=== PATIENT | female | born 1975 | race Hispanic/Latino ===

== ENCOUNTER 2022-06-25 14:31 | Emergency (ER) | payer BC, OTHER ==
--- OUTSIDE RECORDS SUMMARY | 2022-06-25 14:34 | XMS REPORT | Continuity of Care Document ---
:1975 Author Organization [facility] t Address [address] Humphre[place]. [address] [place] [id number] Care Team Providers Name Role Phone Cristian LEDESMA, Art Primary Care Physician Sonia Coronado MD Attending Clinician Jnoel Greco Attending Clinician Caio Cisneros CABLE MAINTAINER, Kourtney Mathew Attending Clinician Jeanmarie West Attending Clinician SONIA CORONADO Admitting Clinician Unavailable Payers Payer Name Policy Type Policy Number Effective Date Expiration Date S ource Problems Condition Condition Condition Status Onset Resolution Last Treating Co mments Source Name Details Category Date Date Treatment Clinician Date Radiculopa Radiculopa Disease Active M ethodi thy, thy, 8-24 st cervical cervical 00:00: Hospit a region region 00 l Allergies, Adverse Reactions, Alerts Allergy Allergy Status Severity Reaction(s) Onset Inactive Treating Comm ents Source Name Type Date Date Clinician Tramadol Propensi Active Rash Method i ty to 8-10 st adverse 00:00: Hospita reaction 00 l s to drug Family History Family Member Diagnosis Comments Start Date Stop Date Source Natural father [facility] Social History Social Habit Start Date Stop Date Quantity Comments Source Alcohol intake 2022-06-05 2022-06-05 [facility]drinker [facility] 00:00:00 (finding) Hospital Tobacco use and 2022-05-20 2022-05-20 Smokeless tobacco [facility] exposure 00:00:00 00:00:00 non-user Hospital Sex Assigned At [birth year] F [facility] Smoking Status Start Date Stop Date Source Never smoked tobacco [facility] Medications Ordered Filled Start Stop Current Ordering Indication Dosage Frequency Signature Comments Components Source Medication Medication Date Date Medication? Clinician (SIG) Name Name methocarbam Yes 750mg Q.25D Take 1 Me thodi oL - tablet st (Robaxin-75 00:00: (750 mg Hos seymour 0) 750 MG 00 total) by l tablet mouth 4 (four) times a day as needed for muscle spasms. methylPREDN 2021- Yes follow Met hodi ISolone 06-23 10-[address] (Medrol, 00:00: 04:59 directions Ho jesiac Nicholas,) 4 mg 00 :00 l tablet tamsulosin 2021- Yes .4mg QD Take 1 Meth boogie (FLOMAX) 06-[address] 0.4 mg 00:00: 04:59 (0.4 mg Hospita capsule 00 :00 total) by l mouth daily for 30 days. meloxicam 2021- No 15mg QD Take 15 mg M ethodi (MOBIC) 15 06-[address] mg tablet 19:18: 00:00 daily. Hospi ta 40 :00 l indomethaci 2022- Yes 25mg Q.[id number] Take 1 Methodi n (INDOCIN) 06-[id number] 25 MG 00:00: 05:59 3D (25 mg Hospita capsule 00 :00 total) by l mouth 3 (three) times a day with meals for 180 days. methocarbam 2021- No 750mg Q.25D Take 1 M ethodi oL 06-[address] (ROBAXIN) 00:00: 04:59 (750 mg Hosp quintin 750 MG 00 :00 total) by l tablet mouth 4 (four) times a day as needed for muscle spasms for up to 10 days. omeprazole Yes 40mg Take 40 mg M ethodi (PriLOSEC) 6-[address] 40 MG 00:00: as needed. Hospit a capsule 00 l Immunizations Ordered Immunization Filled Immunization Date Status Commen ts Source Name Name NO COY-Babs 2021-01-16 Completed [facility] AD26 VACCINATION 00:00:00 Hospital Vital Signs Vital Name Observation Time Observation Value Comments Source Systolic blood 2022-06-04 21:42:30 113 mm[Hg] [facility] pressure Diastolic blood 2022-06-04 21:42:30 59 mm[Hg] [facility] pressure Heart rate 2022-06-04 21:42:30 75 /min [facility] Body temperature 2022-06-04 21:42:30 36.67 [facility] Respiratory rate 2022-06-04 21:42:30 16 /min [facility] Oxygen saturation in 2022-06-04 21:42:30 92 /min [facility] Arterial blood by Pulse oximetry Body height 2022-06-03 14:49:00 162.6 cm [facility] Body weight 2022-06-03 14:49:00 76.204 kg [facility] BMI 2022-06-03 14:49:00 28.84 kg/m2 [facility] Procedures Procedure Date / Time Performing Clinician Source Performed US DUPLEX VENOUS UPPER 2022-06-04 15:10:00 Petey Rangel [facility] EXTREMITY RIGHT SURGICAL PATHOLOGY 2022-06-03 20:03:00 [facility] REQUEST OR FL > 1 HOUR 2022-06-03 17:45:00 [facility] Sonia Ruby dieudonne MA AN ELECTIVE 2022-06-03 16:30:00 Gaston Moyer [facility] ENDOTRACHEAL AIRWAY DISCECTOMY, CERVICAL, 2022-06-03 16:17:00 [facility] ANTERIOR ABO AND RH CONFIRMATION 2022-06-03 15:15:00 [facility] BY PROTOCOL TYPE AND SCREEN 2022-06-03 15:09:00 Sonia Coronado COMPREHENSIVE METABOLIC 2022-05-20 21:00:00 Kourtney Sky [facility] PANEL HC COMPLETE BLD COUNT 2022-05-20 21:00:00 [facility] W/AUTO DIFF HEMOGLOBIN A1C 2022-05-20 21:00:00 [facility] ESTIMATED GFR 2022-05-20 21:00:00 [facility] MRI SPINE EXTERNAL STUDY 2022-04-27 15:11:00 Sonia Coronado Met [facility] XR SPINE EXTERNAL STUDY 2022-04-22 14:50:00 Sonia Coronado [facility] Plan of Care Planned Activity Planned Date Details Comments Source Future Scheduled 2022-06-25 HEPATITIS B VACCINES Met [facility] Test 10:00:14 (1 of 3 - 3-dose series) [code = HEPATITIS B VACCINES (1 of 3 - 3-dose series)] Future Scheduled 2022-06-25 Hepatitis C screening [facility] Test 10:00:14 (procedure) [code = 998929080] Future Scheduled 2022-06-25 Screening for [facility] Test 10:00:14 malignant neoplasm of cervix (procedure) [code = 602556735] Future Scheduled 2022-06-25 BREAST CANCER [facility] Test 10:00:14 SCREENING [code = BREAST CANCER SCREENING] Future Scheduled 2022-06-25 COVID-19 VACCINE (2 - [facility] Test 10:00:14 Booster for No series) [code = COVID-19 VACCINE (2 - Booster for No series)] Future Scheduled 2022-06-25 COLONOSCOPY SCREENING [facility] Test 10:00:14 [code = COLONOSCOPY SCREENING] Future Scheduled 2022-06-25 INFLUENZA VACCINE [facility] Test 10:00:14 [code = INFLUENZA VACCINE] Encounters Start End Encounter Admission Attending Care Care Encounter Source Date/Time Date/Time Type Type Clinicians Facility Department ID 2022-06-23 2022-06-23 Office Yoni Coronado2.840.1 [id number] Methodsundar 13:15:00 13:15:[address]1.[address] 3.430.2.7 Hospit a .3.997557 l .8 2022-06-23 2022-06-23 Orders Yoni Coronado2.840.1 [id number] Methodi 00:00:00 00:00:[address] Sonia [address]1.[address] 3.430.2.7 Hospit a .3.990494 l .8 2022-06-23 2022-06-23 Travel 1.2.840.1 1.2.525.534 [id number] Methodi 00:00:00 00:00:[address] 3.430.2.7 0.2.7.3.698 spita .3.406504 084.8 l .8 2022-06-23 2022-06-23 Outpatient [facility] [id number] Ora 00:00:00 00:00:[address] SONIA [address] 2022-06-03 2022-06-04 Formerly [facility] 1.2.840.1 [id number] Methodi 08:40:00 19:18:00 Encounter Sonia 40504.1.[address] 3.430.2.7 Hospit a .3.091787 l .8 2022-06-03 2022-06-04 Outpatient [facility] [id number] Ora 00:00:00 00:00:00 SONIA [address] 2022-06-03 2022-06-03 Surgery [facility] 1.2.840.1 [id number] Methodi 11:00:00 13:50:[address] 3.430.2.7 Hospit a .3.527899 l .8 2022-06-03 2022-06-03 Anesthesia Jonel Greco 1.2.840.1 [id number] Methodi 11:17:00 13:07:00 Event Kourtney Sky 69498.1.[address] 3.430.2.7 Hospit a .3.118494 l .8 2022-06-03 2022-06-03 Travel 1.2.840.1 1.2.586.044 [id number] Methodi 00:00:00 00:00:[address] 3.430.2.7 0.2.7.3.698 Ho spita .3.340582 084.8 l .8 2022-05-20 2022-05-20 Pre-Admiss Coronado, 1.2.840.1 [id number] Methodi 15:10:00 16:10:00 ion Sonia 93518.1.[address] Testing 3.430.2.7 Hospit a .3.614045 l .8 2022-05-20 2022-05-20 Travel 1.2.840.1 1.2.141.059 1433 [id number] Methodi 00:00:00 00:00:[address] 3.430.2.7 0.2.7.3.698 Ho spita .3.104431 084.8 l .8 2022-05-20 2022-05-20 Outpatient [facility] [id number] Ora 00:00:00 00:00:00 SONIA [address] 2022-05-12 2022-05-12 [facility], 1.2.840.1 [id number] Methodi 09:18:20 23:59:00 Encounter Sonia [address]26.1.[address] 3.430.2.7 Hospit a .3.210305 l .8 2022-05-12 2022-05-12 [facility], 1.2.840.1 [id number] Methodi 09:30:00 10:12:55 Visit Sonia 39522.1.[address] 3.430.2.7 Hospit a .3.965606 l .8 2022-05-12 2022-05-12 [facility], 1.2.840.1 [id number] Methodi 09:17:43 09:17:43 Encounter Sonia 23621.1.[address] 3.430.2.7 Hospit a .3.496362 l .8 2022-05-12 2022-05-12 Outpatient [facility] [id number] Ora 00:00:00 00:00:00 SONIA 161 Method i 2022-05-12 2022-05-12 Outpatient [facility], [facility] [id number] Ora 00:00:00 00:00:00 SONIA 638 Method i 2022-05-12 2022-05-12 Outpatient [facility] [id number] Ora 00:00:00 00:00:00 SONIA 729 Method i 2022-05-12 2022-05-12 Travel 1.2.840.1 1.2.305.733 2612 [id number] Methodi 00:00:00 00:00:00 89801.1.1 350.1.13.43 703 3.430.2.7 0.2.7.3.698 spita .3.412859 084.8 l .8 2022-05-04 2022-05-06 Outside nullFlavo MNA [id number] Memoria 14:58:28 04:59:59 Medical r Neurology 00 l Records Luanne Cuero 2022-05-04 2022-05-06 Outside nullFlavo MNA [id number] Memoria 14:58:28 04:59:59 Medical r Neurology 00 l Records Luanne Cuero 2022-05-04 2022-05-05 Outpatient [facility] [id number] 09:58:28 23:59:59 00 2022-04-29 2022-04-30 Outpatient nullFlavo MNA [id number] Memoria 21:00:00 04:59:59 r Neurology 02 l Luanne Cuero 2022-04-29 2022-04-30 Outpatient nullFlavo MNA [id number] Memoria 21:00:00 04:59:59 r Neurology 01 l Luanne Cuero 2022-04-29 2022-04-30 Outpatient nullFlavo MNA [id number] Memoria 21:00:00 04:59:59 r Neurology 01 l Luanne Cuero 2022-04-29 2022-04-30 Outpatient nullFlavo MNA [id number] Memoria 21:00:00 04:59:59 r Neurology 02 l Knott Cuero 2022-04-29 2022-04-29 Outpatient [facility] SHAYSCHER [id number] 16:00:00 23:59:59 Jeanmarie 01 Amor 2022-04-29 2022-04-29 Outpatient FERNANDA WestER JEFFERYSCHER [id number] 16:00:00 23:59:59 Jeanmarie 02 Amor 2022-04-29 2022-04-29 Outpatient MHIE LIZETTIE [id number] Memoria 16:00:00 16:00:00 01 berry Leo 2022-04-29 2022-04-29 Outpatient MHIE MHIE [id number] Memoria 16:00:00 16:00:00 02 berry Ahmet 2019-06-09 2019-06-10 Outpatient nullFlavo MNA [id number] Memoria 13:15:00 04:59:59 r Neurology 00 l Luanne Leo 2019-06-09 2019-06-10 Outpatient nullFlavo MNA [id number] Memoria 13:15:00 04:59:59 r Neurology 00 l Knott Ahemt 2019-06-09 2019-06-09 Outpatient LARA West SHAYSCHER [id number] 08:15:00 23:59:59 Jeanmarie 00 Amor 2019-06-09 2019-06-09 Outpatient MHIE MHIE [id number] Memoria 08:15:00 08:15:00 00 berry Ahmet Results Test Description Test Time Test Comments Results Result Comments Source Surgical pathology request 2022-06-08 21:30:48 Test Item Value Reference Range Interpretation Comme nts Case number (test code = [id number]) [id number] Surgical pathology report (test code = See link below for PDF Lab R eport 2440) Result status (test code = [id number]) This is Final Report for [id number] 3123-4 [facility]
--- NOTE | 2022-06-25 14:57 | RAD REPORT ---
EXAM DESCRIPTION: CT - Ct Stroke Brain Wo Cont - 06/25/2022 2:50 pm CLINICAL HISTORY: LT SIDE FACIAL DROOP Headache, drowsiness, CVA symptomology COMPARISON: No comparisons TECHNIQUE: All CT scans are performed using dose optimization technique as appropriate and may inclu de automated exposure control or mA/KV adjustment according to patient size. FINDINGS: No intracranial hemorrhage, hydrocephalus or extra-axial fluid collection.No areas of brai n edema or evidence of midline shift. The paranasal sinuses and mastoids are clear. The calvarium is intact. IMPRESSION: No acute intracranial abnormality. If there is continued clinical concern for CVA, MR imaging of the brain would be recommended. The findings were discussed with Dr Zamarripa in the emergency room on 06/25/2022 at 2:49 p.m. by giacomo krishna.
--- NOTE | 2022-06-25 15:30 | ER ---
Nurse's Notes [facility] Name: Javy Brenner Age: 46 yrs Sex: Female : 1975 Arrival Date: 06/25/2022 Time: 14:33 Bed 5 Private MD: Art Foster Diagnosis: Fusion of spine, cervical region Presentation: 06/25 14:39 Onset of symptoms was June 25, 2022 at 11:30. tw2 14:39 Acuity: ANTONIO 2 tw2 14:39 Chief complaint: Patient states: i went to my therapy for cervical ruptured disc tw2 surgery that i had 06/03 and i started having muscle spasms yesterday. but the therapist told me today that she noticed LEFT eye drooping around 1130. she told me she was going to call my surgery. then they just called me back and told me to come here and dr. florence office told me to come here. i did have Bellaire palsey 04/09. Coronavirus screen: At this time, the client does not indicate any symptoms associated with coronavirus-19. Ebola Screen: Patient denies travel to an Ebola-affected area in the 21 days before illness onset. No acute neurological deficit is noted. Pre-hospital glucose is not applicable to this patient. Initial Sepsis Screen: Does the patient meet any 2 criteria? No. Patient's initial sepsis screen is negative. Does the patient have a suspected source of infection? No. Patient's initial sepsis screen is negative. Risk Assessment: Do you want to hurt yourself or someone else? Patient reports no desire to harm self or others. 14:39 Method Of Arrival: Wheelchair tw2 Triage Assessment: 14:43 The onset of the patients symptoms was June 25, 2022 at 11:30. General: Appears in tw2 no apparent distress. well groomed, Behavior is calm, cooperative, appropriate for age. Pain: Denies pain. Neuro: Level of Consciousness is awake, alert, obeys commands, Oriented to person, place, time, situation, Construction Estimator are equal bilaterally Moves all extremities. Facial droop on left, Reports dizziness, facial droop on left that my daughter noticed.. POLICY CANCELLATION CLERK: 14:50 LMP N/A - Hysterectomy ph Stroke Activation: Symtpom onset >3 hours and < 6 hours Physician: Stroke Attending; Name: ; Notified At: ; Arrived At: Physician: Chief Stroke Resident; Name: ; Notified At: ; Arrived At: Physician: Stroke Resident; Name: ; Notified At: ; Arrived At: Physician: ED Attending; Name: ; Notified At: ; Arrived At: Physician: ED Resident; Name: ; Notified At: ; Arrived At: Historical: - Allergies: 14:38 tramadol; tw2 - Home Meds: 14:39 methocarbamol 750 mg Oral tab 1 tab every 4 hours [Active]; indomethacin 25 mg Oral cap tw2 1 cap 3 times per day [Active]; - PMHx: 14:46 Bellaire palsey; tw2 - PSHx: 14:38 cervical ruptured disck sx 06/03; tw2 - Immunization history:: Client reports receiving the Gus \\T\\ Gus single-dose vaccine. . - Social history:: Smoking status: Patient denies any tobacco usage or history of. - Family history:: not pertinent. Screenin:26 Abuse screen: Denies threats or abuse. Denies injuries from another. Nutritional ph screening: No deficits noted. Tuberculosis screening: No symptoms or risk factors identified. Fall Risk None identified. Assessment: 14:55 VAN Scoring: Arm Drift: Patients demonstrates NO arm weakness. Patient is VAN Negative. ph TNKase (Tenecteplase) Screening: Contraindications: Rapidly improving condition or minor deficit: Yes. Reassessment: No facial droop or deficits noted. General: Appears in no apparent distress. comfortable, well groomed, Behavior is calm, cooperative, appropriate for age. Pain: Complains of pain in right posterior aspect of neck and left posterior aspect of neck Pain radiates to left arm Quality of pain is described as "muscle spasm". Neuro: Level of Consciousness is awake, alert, obeys commands, Oriented to person, place, time, situation, Construction Estimator are equal bilaterally Moves all extremities. Full function Gait is steady, Speech is normal, Facial symmetry appears normal, Facial symmetry: tongue is midline, Pupils are PERRLA, Intact. Cardiovascular: Capillary refill < 3 seconds in bilateral fingers Patient's skin is warm and dry. Respiratory: Airway is patent Respiratory effort is even, unlabored. Derm: Skin Skin is pink, warm \\T\\ dry. Musculoskeletal: Circulation, motion, and sensation intact. Range of motion: limited in all extremities. 15:28 Patient has been NPO before screening. The patient is alert, and able to follow commands. The patient does not exhibit slurred or garbled speech. The patient is not exhibiting difficulty speaking. The patient is exhibiting difficulty understanding words. The patient is able to swallow own secretions with no drooling or need for suction. Patient tolerated one teaspoon of water. No drooling, immediate coughing, gurgling, or clearing of the throat was noted. The patient tolerated 90mL of water. No drooling, immediate coughing, gurgling, or clearing of the throat was noted. The patient passed the bedside swallow screening. Oral medications may be given as ordered. Contact Physician for further diet orders. Provider notified of bedside swallow screening results: Werner Zamarripa MD. 15:33 Reassessment: Patient appears in no apparent distress at this time. Patient and/or ph family updated on plan of care and expected duration. Pain level reassessed. Patient is alert, oriented x 3, equal unlabored respirations, skin warm/dry/pink. D/C pending radiology results. Vital Signs: 14:39 BP 125 / 69; Pulse 77; Resp 18; Temp 98.4(TE); Pulse Ox 98% on R/A; tw2 14:46 Weight 70.31 kg (R); tw2 16:28 BP 118 / 79; Pulse 76; Resp 18; Temp 98.0; Pulse Ox 99% on R/A; ph NIH Stroke Scale Scores: 14:55 NIHSS Score: 0 ph ED Course: 14:33 Patient arrived in ED. mr 14:33 Art Foster MD is Private Physician. mr 14:39 Triage completed. tw2 14:43 Arm band placed on. tw2 14:49 Werner Zamarripa MD is Attending Physician. taylor 14:51 Ct Stroke Brain Wo Cont In Process Unspecified. EDMS 14:52 Initial lab(s) drawn, by me, sent to lab. Inserted saline lock: 20 gauge in right ph antecubital area, using aseptic technique. Blood collected. 15:19 Ekaterina Doe, RAMESH is Primary Nurse. ph 15:27 Art Foster MD is Referral Physician. taylor 15:27 aZy Thacker MD is Referral Physician. taylor 15:27 Patient has correct armband on for positive identification. Bed in low position. Call ph light in reach. Side rails up X 1. Pulse ox on. NIBP on. Door closed. Noise minimized. Warm blanket given. 16:04 C Spine Ap/Lat XRAY In Process Unspecified. EDMS 16:26 No provider procedures requiring assistance completed. IV discontinued, intact, ph bleeding controlled, No redness/swelling at site. Pressure dressing applied. Administered Medications: No medications were administered Medication: 15:26 VIS not applicable for this client. ph Point of Care Testing: Blood Glucose: 14:50 Blood Glucose: 110 mg/dL; ph Ranges: Outcome: 15:29 Discharge ordered by MD. taylor 16:26 Discharged to home ambulatory. ph 16:26 Condition: good 16:26 Discharge instructions given to patient, Instructed on discharge instructions, follow up and referral plans. Demonstrated understanding of instructions, follow-up care. 16:29 Patient left the ED. ph NIH Stroke Scale - NIH Stroke Score Date: 06/25/2022 Time: 14:55 Total Score = 0 1a. Level of Consciousness (LOC) - 0(Alert) 1b. Level of Consciousness (LOC) (Month \\T\\ Age) - 0(Both) 1c. LOC Commands (Open \\T\\ Closes Eyes/Mail Distribution Scheme Examiner) - 0(Both) 2. Best Gaze (Lateral Gaze Paresis) - 0(Normal) 3. Visual Field Loss - 0(No visual loss) 4. Facial Palsy - 0(Normal) 5a. Left Arm: Motor (10-second hold) - 0(No drift) 5b. Right Arm: Motor (10-second hold) - 0(No drift) 6a. Left Leg: Motor (5-second hold - always test supine) - 0(No drift) 6b. Right Leg: Motor (5-second hold - always test supine) - 0(No drift) 7. Limb Ataxia (finger/nose \\T\\ heel/peck - test with eyes open) - 0(Absent) 8. Sensory Loss (pinprick arms/legs/face) - 0(Normal) 9. Best Language: Aphasia (description/naming/reading) - 0(No aphasia) 10. Dysarthria (speech clarity - read or repeat words) - 0(Normal) 11. Extinction and Inattention (visual/tactile/auditory/spatial/personal) - 0(No abnormality) Initials: ph Signatures: Dispatcher [employer] EDMS Dallin, Werner, MD MD taylor Burton, Yin mr Lola Thomason, RN RN aa5 Ekaterina Doe RN RN Esmer Banegas RN RN tw2 Corrections: (The following items were deleted from the chart) 15:04 14:45 Lola Thomason, RAMESH is Primary Nurse. aa5 aa5
--- NOTE | 2022-06-25 15:30 | EDPHYS ---
Physician Documentation [facility] Name: Javy Brenner Age: 46 yrs Sex: Female : 1975 Arrival Date: 06/25/2022 Time: 14:33 Bed 5 Private MD: Art Foster ED Physician Werner Zamarripa HPI: 06/25 15:21 This 46 yrs old Female presents to ER via Wheelchair with complaints of Facial taylor Droop. 15:21 The patient presents to the emergency department with NONE. Onset: The symptoms/episode taylor began/occurred just prior to arrival. Context: NO DEFICIT NOTED. Associated signs and symptoms: The patient has no apparent associated signs or symptoms. Severity of symptoms: At their worst the symptoms were mild in the emergency department the symptoms are unchanged. Patient's baseline: Neuro:. Patient's baseline: Neuro: alert and fully oriented, Motor: no deficits, Ambulation: unable to walk, Speech: normal. Current symptoms: Currently, the patient is not experiencing any symptoms. The patient has not experienced similar symptoms in the past. 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 . - Social history:: Smoking status: Patient denies any tobacco usage or history of. - Family history:: not pertinent. ROS: 15:21 Constitutional: Negative for fever, chills, and weight loss, Eyes: Negative for injury, taylor pain, redness, and discharge, ENT: Negative for injury, pain, and discharge, Neck: Negative for injury, pain, and swelling, Cardiovascular: Negative for chest pain, palpitations, and edema, Respiratory: Negative for shortness of breath, cough, wheezing, and pleuritic chest pain, Abdomen/GI: Negative for abdominal pain, nausea, vomiting, diarrhea, and constipation, Back: Negative for injury and pain, : Negative for injury, bleeding, discharge, and swelling, MS/Extremity: Negative for injury and deformity, Skin: Negative for injury, rash, and discoloration, Neuro: Negative for headache, weakness, numbness, tingling, and seizure, Psych: Negative for depression, anxiety, suicide ideation, homicidal ideation, and hallucinations, Allergy/Immunology: Negative for hives, rash, and allergies, Endocrine: Negative for neck swelling, polydipsia, polyuria, polyphagia, and marked weight changes, Hematologic/Lymphatic: Negative for swollen nodes, abnormal bleeding, and unusual bruising. 15:21 Neck: Positive for pain with movement, pain at rest, USUAL POST OP. Exam: 15:21 Constitutional: This is a well developed, well nourished patient who is awake, alert, taylor and in no acute distress. Head/Face: Normocephalic, atraumatic. Eyes: Pupils equal round and reactive to light, extra-ocular motions intact. Lids and lashes normal. Conjunctiva and sclera are non-icteric and not injected. Cornea within normal limits. Periorbital areas with no swelling, redness, or edema. ENT: Nares patent. No nasal discharge, no septal abnormalities noted. Tympanic membranes are normal and external auditory canals are clear. Oropharynx with no redness, swelling, or masses, exudates, or evidence of obstruction, uvula midline. Mucous membranes moist. Neck: Trachea midline, no thyromegaly or masses palpated, and no cervical lymphadenopathy. Supple, full range of motion without nuchal rigidity, or vertebral point tenderness. No Meningismus. Chest/axilla: Normal chest wall appearance and motion. Nontender with no deformity. No lesions are appreciated. Cardiovascular: Regular rate and rhythm with a normal S1 and S2. No gallops, murmurs, or rubs. Normal PMI, no JVD. No pulse deficits. Respiratory: Lungs have equal breath sounds bilaterally, clear to auscultation and percussion. No rales, rhonchi or wheezes noted. No increased work of breathing, no retractions or nasal flaring. Abdomen/GI: Soft, non-tender, with normal bowel sounds. No distension or tympany. No guarding or rebound. No evidence of tenderness throughout. Back: No spinal tenderness. No costovertebral tenderness. Full range of motion. Skin: Warm, dry with normal turgor. Normal color with no rashes, no lesions, and no evidence of cellulitis. MS/ Extremity: Pulses equal, no cyanosis. Neurovascular intact. Full, normal range of motion. Neuro: Awake and alert, GCS 15, oriented to person, place, time, and situation. Cranial nerves II-XII grossly intact. Motor strength 5/5 in all extremities. Sensory grossly intact. Cerebellar exam normal. Normal gait. Psych: Awake, alert, with orientation to person, place and time. Behavior, mood, and affect are within normal limits. 15:21 Neck: External neck: no acute changes, tenderness, NORMAL POST OP, SWALLOWS WITHOUT DIFFICULTY. 15:30 ECG was reviewed by the Attending Physician. [facility] Vital Signs: 14:39 BP 125 / 69; Pulse 77; Resp 18; Temp 98.4(TE); Pulse Ox 98% on R/A; tw2 14:46 Weight 70.31 kg (R); tw2 16:28 BP 118 / 79; Pulse 76; Resp 18; Temp 98.0; Pulse Ox 99% on R/A; ph NIH Stroke Scale Scores: 14:55 NIHSS Score: 0 ph MDM: 14:49 Patient medically screened. [facility] 15:21 Data reviewed: vital signs, nurses notes, EMS record. Data interpreted: Cardiac taylor monitor: not applicable for this patient encounter. rate is 77 beats/min, rhythm is regular, Pulse oximetry: on room air is 98 %. Test interpretation: by ED physician or midlevel provider: ECG, plain radiologic studies. Counseling: I had a detailed discussion with the patient and/or guardian regarding: the historical points, exam findings, and any diagnostic results supporting the discharge/admit diagnosis, radiology results, the need for outpatient follow up, for definitive care, a family practitioner, a neurosurgeon. 06/25 15:05 Order name: Glucose, Ancillary Testing [facility] 06/25 14:50 Order name: Ct Stroke Brain Wo Cont [facility] 06/25 15:06 Order name: EKG; Complete Time: 15:07 [facility] 06/25 15:06 Order name: EKG - Nurse/Tech; Complete Time: 15:28 [facility] 06/25 15:06 Order name: C Spine Ap/Lat XRAY [facility] EC:30 Rate is 78 beats/min. Rhythm is regular. QRS [place] is Normal. TN interval is normal. QRS taylor interval is normal. QT interval is normal. No Q waves. T waves are Normal. Clinical impression: NSR w/ Non-specific ST/T Changes and No evidence of ischemia. Interpreted by me. Reviewed by me. Administered Medications: No medications were administered Point of Care Testing: Blood Glucose: 14:50 Blood Glucose: 110 mg/dL; ph Ranges: Critical Glucose Levels:Adult <50 mg/dl or >400 mg/dl <40 mg/dl or >180 mg/dl Disposition Summary: 06/25/22 15:29 Discharge Ordered Location: Home taylor Problem: new taylor Symptoms: have improved taylor Condition: Stable taylor Diagnosis - Fusion of spine, cervical region taylor Followup: taylor - With: Art Foster MD - When: 2 - 3 days - Reason: Recheck today's complaints, Continuance of care, Re-evaluation by your physician Followup: taylor - With: Zay Thacker MD - When: 2 - 3 days - Reason: Recheck today's complaints, Re-evaluation by your physician Discharge Instructions: - Discharge Summary Sheet taylor - Anterior Cervical Diskectomy and Fusion, Care After taylor - Anterior Cervical Diskectomy and Fusion taylor Forms: - Medication Reconciliation Form taylor - Thank You Letter taylor - Antibiotic Education taylor - Prescription Opioid Use taylor NIH Stroke Scale - NIH Stroke Score Date: 06/25/2022 Time: 14:55 Total Score = 0 1a. Level of Consciousness (LOC) - 0(Alert) 1b. Level of Consciousness (LOC) (Month \T\ Age) - 0(Both) 1c. LOC Commands (Open \T\ Closes Eyes/Hand Alterations Seamstress) - 0(Both) 2. Best Gaze (Lateral Gaze Paresis) - 0(Normal) 3. Visual Field Loss - 0(No visual loss) 4. Facial Palsy - 0(Normal) 5a. Left Arm: Motor (10-second hold) - 0(No drift) 5b. Right Arm: Motor (10-second hold) - 0(No drift) 6a. Left Leg: Motor (5-second hold - always test supine) - 0(No drift) 6b. Right Leg: Motor (5-second hold - always test supine) - 0(No drift) 7. Limb Ataxia (finger/nose \T\ heel/peck - test with eyes open) - 0(Absent) 8. Sensory Loss (pinprick arms/legs/face) - 0(Normal) 9. Best Language: Aphasia (description/naming/reading) - 0(No aphasia) 10. Dysarthria (speech clarity - read or repeat words) - 0(Normal) 11. Extinction and Inattention (visual/tactile/auditory/spatial/personal) - 0(No abnormality) Initials: ph Signatures: Dispatcher [employer] EDWerner Perdomo MD MD cha Wise, Tara RN RN tw2
--- NOTE | 2022-06-25 16:09 | RAD REPORT ---
EXAM DESCRIPTION: RAD - C Spine Ap/Lat - 06/25/2022 4:03 pm CLINICAL HISTORY: PAIN COMPARISON: No comparisons FINDINGS: Cervical bodies are normal in height and alignment.No fracture or acute bony process seen. No disc space narrowing.Postsurgical changes at the disc space of C4-5. No prevertebral soft tissue thickening or other suspicious soft tissue finding. The odontoid is normal and the lateral masses are symmetric. IMPRESSION: Postsurgical changes C4-5. No acute process seen.
--- NOTE | 2022-06-26 12:33 | EKG ---
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
[2022-06-26 19:09] VITALS: BP 118/79; TEMP 98; O2SAT 99
== END 2022-06-25 16:29 | disposition home or self-care (01) ==
LOC: ER 14:31
DX: M43.22 Fusion of spine, cervical region (principal)
CPT/HCPCS: 70450; 72040; 82947; 93005; 99284

== ENCOUNTER → 2023-12-30 | Emergency (ER) | payer OTHER ==
[~2023-12-30] MED LIST: FAMOTIDINE 20 MG/2 ML VIAL IV ONE; KETOROLAC 30 MG/ML INJ ONE; METOCLOPRAMIDE 10 MG/2mL INJ ONE; MORPHINE 4 MG/ML SYR ONE; NA CHLORIDE 0.9% 1,000 ML ONE; ONDANSETRON 4 MG/2 ML VIAL ONE
[2023-12-30 02:50] LABS: Absolute Basophils 0.1 K/uL (0-0.5); Absolute Lymphocytes (CBC) 1.2 K/uL (0.7-4.9); Absolute Monocytes 0.4 K/uL (0.1-1.3); Absolute Neutrophil 16.2 K/uL (1.8-8.0); Basophils % 0.6 % (0-1.3); Eosinophils % 0.1 % (0-4.4); Hematocrit 41.7 % (36.0-45.0); Hemoglobin 14.4 g/dL (12.0-15.0); Lymphocytes % 6.7 % (15.3-44.8); MCH 31.3 pg (27.0-35.0); MCHC 34.6 g/dL (32.0-36.0); MCV 90.6 fL (80-100); MPV 9.1 fL (7.6-11.3); Neutrophils % 90.6 % (41.7-73.7); Platelets 282 thou/uL (152-406); RBC Red Blood Cell Count 4.61 M/uL (3.86-4.86); Red Cell Distribution Width 13.3 % (12.1-15.2)
[2023-12-30 03:08] LABS: Specific Gravity 1.022 (1.005-1.030)
[2023-12-30 03:13] LABS: Albumin 4.1 g/dL (3.4-5.0); Anion Gap 9.6 mEq/L (5.0-15.0); Bilirubin Total 0.8 mg/dL (0.2-1.0); Potassium 3.6 mEq/L (3.5-5.1); Protein, Total 8.1 g/dL (6.4-8.2)
[2023-12-30 03:20] LABS: Specific Gravity 1.022 (1.005-1.030); Sqamous Epithelial <5 /HPF (None Seen); Urine Bacteria None Seen /HPF (<20); Urine Bilirubin NEGATIVE (Negative); Urine Blood Negative (Negative); Urine Clarity Clear (Clear); Urine Color Light-Yellow (Yellow); Urine Culture Reflex Order NOT NEEDED; Urine Glucose NEGATIVE (Negative); Urine Ketones 2+ (Negative); Urine Microscopic Reflex YN ORDER UMIC; Urine Mucus Slight /HPF (None Seen); Urine Nitrite NEGATIVE (Negative); Urine Protein 1+ (Negative); Urine Urobilinogen Normal (Normal); Urine WBC <5 /HPF (<5)
--- NOTE | 2023-12-30 05:06 | EDPHYS ---
Physician Documentation [facility] Name: Javy Brenner Age: 48 yrs Sex: Female : 1975 Arrival Date: 12/30/2023 Time: 01:43 Bed 7 Private MD: Art Foster ED Physician Benjamin Garcia HPI: 12/29 01:57 This 48 yrs old Female presents to ER via Unassigned with complaints of sp4 Abdominal Pain, Back Pain, Vomiting. 04:59 Patient states at 7 PM yesterday she has developed acute onset epigastric right upper sp4 quadrant pain with radiation to the back associated with vomiting. . 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 - Social history:: Smoking status: Patient denies any tobacco usage or history of. - Family history:: not pertinent. ROS: 04:59 Constitutional: Negative for fever, chills, and weight loss, positive abdominal pain, sp4 positive back pain, positive nausea, positive vomiting 04:59 All other systems are negative, Exam: 04:59 Constitutional: This is a well developed, well nourished patient who is awake, alert, sp4 and in no acute distress. Head/Face: Normocephalic, atraumatic. Eyes: Pupils equal round and reactive to light, extra-ocular motions intact. Lids and lashes normal. Conjunctiva and sclera are not injected. Cornea within normal limits. Periorbital areas with no swelling, redness, or edema. ENT: Nares patent. No nasal discharge, no septal abnormalities noted. Tympanic membranes are normal and external auditory canals are clear. Oropharynx with no redness, swelling, or masses, exudates, or evidence of obstruction, uvula midline. Mucous membranes moist. Neck: Trachea midline, no thyromegaly or masses palpated, and no cervical lymphadenopathy. Supple, full range of motion without nuchal rigidity, or vertebral point tenderness. Chest/axilla: Normal chest wall appearance and motion. Nontender with no deformity. No lesions are appreciated. Cardiovascular: Regular rate and rhythm with a normal S1 and S2. No gallops, murmurs, or rubs. Normal PMI, no JVD. No pulse deficits. Respiratory: Lungs have equal breath sounds bilaterally, clear to auscultation and percussion. No rales, rhonchi or wheezes noted. No increased work of breathing, no retractions or nasal flaring. Abdomen/GI: Soft, with normal bowel sounds. No distension or tympany. No guarding or rebound. No evidence of tenderness throughout. Back: No spinal tenderness. No costovertebral tenderness. Skin: Warm, dry with normal turgor. Normal color with no rashes, no lesions, and no evidence of cellulitis. MS/ Extremity: Pulses equal, no cyanosis. Neurovascular intact. Full, normal range of motion. Neuro: Awake and alert, GCS 15, oriented to person, place, time, and situation. Cranial nerves II-XII grossly intact. Motor strength 5/5 in all extremities. Sensory grossly intact. Psych: Awake, alert, with orientation to person, place and time. Behavior, mood, and affect are within normal limits Vital Signs: 01:57 BP 140 / 77; Pulse 71; Resp 16 S; Temp 97.6(O); Pulse Ox 99% on R/A; Weight 83.91 kg; ha1 Height 5 ft. 3 in. ; 03:00 BP 121 / 72; Pulse 69; Resp 17 S; Pulse Ox 98% on R/A; ha1 03:30 BP 128 / 74; Pulse 71; Resp 17 S; Pulse Ox 99% on R/A; ha1 04:37 BP 122 / 61; Pulse 67; Resp 17 S; Pulse Ox 99% on R/A; ha1 05:20 BP 118 / 64; Pulse 67; Resp 17 S; Temp 97.9(O); Pulse Ox 100% on R/A; ha1 01:57 Body Mass Index 32.77 (83.91 kg, 160.02 cm) ha1 [place] Coma Score: 04:59 Eye Response: spontaneous(4). Motor Response: obeys commands(6). Verbal Response: sp4 oriented(5). Total: 15. MDM: 01:57 Patient medically screened. sp4 04:17 ED course: EXAM DESCRIPTION: Abdomen Exam Limited CLINICAL HISTORY: ABD PAIN sp4 COMPARISON: None. TECHNIQUE: Real-time sonographic images of the gallbladder were obtained using a curved multihertz transducer. FINDINGS: Liver: The visualized liver has normal contour and increased echogenicity. Hepatopedal flow in the portal vein. Findings confirmed with color and spectral Doppler imaging. The common bile duct measures 0.3 cm. Gallbladder: Shadowing gallstones within the gallbladder lumen. Gallbladder wall thickness of 0.3 cm. Sonographic Antoine's sign is not provided. IMPRESSION: Cholelithiasis without other sonographic evidence of acute cholecystitis. Hepatic steatosis. . 04:53 ED course: CLINICAL HISTORY: ABD PAIN COMPARISON: None. TECHNIQUE: CTABDOMEN PELVIS sp4 WITH IV CONTRAST on 12/30/2023 2:04 AM CDT This exam was performed according to our departmental dose-optimization program, which includes automated exposure control, adjustment of the mA and/or kV according to patient size and/or use of iterative reconstruction technique. FINDINGS: Lower lungs are clear. Abdomen: Liver is mildly fatty in attenuation. There is no biliary dilatation. Gallbladder is normal in appearance. The pancreas and spleen are normal in appearance. The adrenal glands and kidneys are unremarkable. Abdominal aorta is normal in course and caliber without aneurysm. There is no free air. There is no retroperitoneal adenopathy. Pelvis: There is no bowel obstruction. Urinary bladder is unremarkable. There is no free fluid. Uterus is absent. Appendix is normal. Skeleton: There are no acute osseous findings. No suspicious bony lesions. IMPRESSION: No acute process. Electronically signed by: Reinaldo Aden MD 12/30/2023 04:19 AM. 04:59 Differential diagnosis: Cholelithiasis chronic back pain, Fatigue Fracture sp4 Hydronephrosis Peptic Ulcer. Data reviewed: vital signs, nurses notes, old medical records, lab test result(s), CBC, electrolytes, radiologic studies, CT scan, ultrasound. Consideration of Admission/Observation Escalation of care including admission/observation considered. 05:03 ED course: Patient stable for discharge home with follow-up with Dr. Bradshaw for sp4 cholelithiasis without acute cholecystitis. Advised bland diet, non fat diet as well . 12/29 01:57 Order name: CBC with Diff; Complete Time: 03:36 sp4 12/29 01:57 Order name: CMP; Complete Time: 03:36 sp4 03/21 01:57 Order name: Lipase; Complete Time: 03:36 sp4 12/29 01:57 Order name: Test, Urine; Complete Time: 03:36 sp4 12/29 01:57 Order name: Urinalysis w/ reflexes; Complete Time: 03:36 sp4 12/29 02:04 Order name: CT Abd/Pelvis - IV Contrast Only sp4 12/29 02:04 Order name: US Abdomen Limited sp4 12/29 01:57 Order name: IV Saline Lock; Complete Time: 02:12 sp4 12/29 01:57 Order name: Labs collected and sent; Complete Time: 02:12 sp4 Administered Medications: 02:30 Drug: Famotidine IVP 20 mg IVP once; dilute with 10 mL 0.9% NaCl; give over 2 minutes ha1 Route: IVP; Site: right antecubital; 03:00 Follow up: Response: No adverse reaction; Marked relief of symptoms ha1 02:32 Drug: NS 0.9% IV 1000 ml IV at 1 bolus Per protocol; 1000 mL bolus Route: IV; Rate: 1 ha1 bolus; Site: right antecubital; 05:42 Follow up: Response: No adverse reaction; IV Status: Completed infusion; IV Intake: ha1 1000ml 02:35 Drug: metoCLOPramide IVP 10 mg IVP once; over 1 to 2 minutes Route: IVP; Site: right ha1 antecubital; 03:00 Follow up: Response: No adverse reaction; Marked relief of symptoms ha1 02:37 Drug: Ondansetron IVP 4 mg IVP once; over 2 minutes Route: IVP; Site: right antecubital;ha1 03:00 Follow up: Response: No adverse reaction; Marked relief of symptoms ha1 02:40 Drug: morphine IVP or IV 4 mg IVP once over 4 mins Route: IVP; Infused Over: 4 mins; ha1 Site: right antecubital; 03:00 Follow up: Response: No adverse reaction; Marked relief of symptoms; Pain is decreased; ha1 RASS: Alert and Calm (0) 02:40 Drug: Ketorolac IVP 30 mg IVP once Route: IVP; Site: right antecubital; ha1 03:00 Follow up: Response: No adverse reaction; Marked relief of symptoms ha1 Disposition Summary: 12/30/23 05:05 Discharge Ordered Notes: Location: Home sp4 Problem: new sp4 Symptoms: have improved sp4 Condition: Stable sp4 Diagnosis - Other cholelithiasis without obstruction sp4 - Calculus of gallbladder without cholecystitis sp4 Followup: sp4 - With: Van Bradshaw MD - When: 7 - 10 days - Reason: Recheck today's complaints Discharge Instructions: - Discharge Summary Sheet sp4 - Cholelithiasis, [id number] sp4 Forms: - Patient Portal Instructions sp4 Prescriptions: - Ibuprofen 800 mg Oral Tablet - take 1 tablet ORAL route every 8 hours As needed take with food; 30 tablet; sp4 Refills: 0, Product Selection Permitted - dicyclomine 20 mg Oral tablet - take 2 tablets ORAL route every 8 hours PRN abdominal pain; 30 tablet; Refills: sp4 0, Product Selection Permitted - ondansetron 8 mg Oral Tablet,disintegrating - take 1 tablet ORAL route every 8 hours PRN nausea; 30 tablet; Refills: 0, sp4 Product Selection Permitted Signatures: Dispatcher [employer] Azalia Wilson RN RN ha1 Benjamin Garcia MD MD sp4
--- NOTE | 2023-12-30 05:06 | ER ---
Nurse's Notes [facility] Name: Javy Brenner Age: 48 yrs Sex: Female : 1975 Arrival Date: 12/30/2023 Time: 01:43 Bed 7 Private MD: Art Foster Diagnosis: Other cholelithiasis without obstruction;Calculus of gallbladder without cholecystitis Presentation: 12/29 01:57 Chief complaint: Patient states: I have abdominal pain that radiates to my back, ha1 nausea, vomiting , and diarrhea. 01:57 Coronavirus screen: Vaccine status: Patient reports receiving the 2nd dose of the covid ha1 vaccine. Moderna. Ebola Screen: No symptoms or risks identified at this time. Initial Sepsis Screen: Does the patient meet any 2 criteria? No. Patient's initial sepsis screen is negative. Does the patient have a suspected source of infection? No. Patient's initial sepsis screen is negative. Risk Assessment: Do you want to hurt yourself or someone else? Patient reports no desire to harm self or others. Onset of symptoms was December 30, 2023. :57 Method Of Arrival: Ambulatory ha1 01:57 Acuity: ANTONIO 3 ha1 Triage Assessment: 01:57 General: Appears uncomfortable, Behavior is calm, cooperative. Pain: Complains of pain ha1 in abdomen Pain radiates to back. Neuro: Level of Consciousness is awake, alert, obeys commands, Oriented to person, place, time, situation. Cardiovascular: Patient's skin is warm and dry. Respiratory: Airway is patent Respiratory effort is even, unlabored, Respiratory pattern is regular, symmetrical. 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 - Social history:: Smoking status: Patient denies any tobacco usage or history of. - Family history:: not pertinent. Screenin:57 Abuse screen: Denies threats or abuse. Denies injuries from another. Nutritional ha1 screening: No deficits noted. Tuberculosis screening: No symptoms or risk factors identified. 02:00 [facility] ED Fall Risk Assessment (Adult) History of falling in the last 3 months, ha1 including since admission No falls in past 3 months (0 pts) Confusion or Disorientation No (0 pts) Intoxicated or Sedated No (0 pts) Impaired Gait No (0 pts) Mobility Assist Device Used No (0 pt) Altered Elimination No (0 pt) Score/Fall Risk Level 0 - 2 = Low Risk Oriented to surroundings, Maintained a safe environment, Educated pt \T\ family on fall prevention, incl call for assistance when getting out of bed, Hourly rounding (assess needs \T\ fall precautionary measures) done. Assessment: 01:57 General: Appears uncomfortable, Behavior is cooperative. Pain: Complains of pain in ha1 abdomen Pain radiates to back Pain currently is 9 out of 10 on a pain scale. Quality of pain is described as pressure, gnawing, Pain began gradually. Neuro: Level of Consciousness is awake, alert, obeys commands, Oriented to person, place, time, situation. Cardiovascular: Capillary refill < 3 seconds Patient's skin is warm and dry. Respiratory: Airway is patent Respiratory effort is even, unlabored, Respiratory pattern is regular, symmetrical. GI: Abdomen is round non-distended, Bowel sounds present X 4 quads. Abd is soft and non tender X 4 quads. Reports lower abdominal pain, upper abdominal pain, diarrhea, nausea, vomiting. Derm: Skin is pink, warm \T\ dry. Musculoskeletal: Circulation, motion, and sensation intact. Range of motion: intact in all extremities. 03:30 Reassessment: Patient and/or family updated on plan of care and expected duration. Pain ha1 level reassessed. Patient is alert, oriented x 3, equal unlabored respirations, skin warm/dry/pink. Patient states feeling better. Patient states symptoms have improved. 04:36 Reassessment: Patient and/or family updated on plan of care and expected duration. Pain ha1 level reassessed. Patient is alert, oriented x 3, equal unlabored respirations, skin warm/dry/pink. pain 3/10 Patient states feeling better. Patient states symptoms have improved. 05:40 Reassessment: Patient and/or family updated on plan of care and expected duration. Pain ha1 level reassessed. Patient is alert, oriented x 3, equal unlabored respirations, skin warm/dry/pink. Patient denies pain at this time. Patient states feeling better. Patient states symptoms have improved. Vital Signs: 01:57 BP 140 / 77; Pulse 71; Resp 16 S; Temp 97.6(O); Pulse Ox 99% on R/A; Weight 83.91 kg; ha1 Height 5 ft. 3 in. ; 03:00 BP 121 / 72; Pulse 69; Resp 17 S; Pulse Ox 98% on R/A; ha1 03:30 BP 128 / 74; Pulse 71; Resp 17 S; Pulse Ox 99% on R/A; ha1 04:37 BP 122 / 61; Pulse 67; Resp 17 S; Pulse Ox 99% on R/A; ha1 05:20 BP 118 / 64; Pulse 67; Resp 17 S; Temp 97.9(O); Pulse Ox 100% on R/A; ha1 01:57 Body Mass Index 32.77 (83.91 kg, 160.02 cm) ha1 Connie Coma Score: 04:59 Eye Response: spontaneous(4). Motor Response: obeys commands(6). Verbal Response: sp4 oriented(5). Total: 15. ED Course: 01:47 Patient arrived in ED. mr 01:47 Art Foster MD is Private Physician. mr 01:57 Benjamin Gracia MD is Attending Physician. sp4 01:57 Patient has correct armband on for positive identification. Bed in low position. Call ha1 light in reach. Side rails up X 1. 02:00 Door closed. Noise minimized. Warm blanket given. ha1 02:00 Arm band placed on right wrist. ha1 02:12 CBC with Diff Sent. ha1 02:12 CMP Sent. ha1 02:12 Lipase Sent. ha1 02:15 Inserted saline lock: 20 gauge in right antecubital area, using aseptic technique. ha1 Blood collected. 02:39 Triage completed. ha1 02:49 US Abdomen Limited In Process Unspecified. EDMS 03:41 CT Abd/Pelvis - IV Contrast Only In Process Unspecified. EDMS 05:04 Van Bradshaw MD is Referral Physician. sp4 05:37 No provider procedures requiring assistance completed. IV discontinued, intact, ha1 bleeding controlled, No redness/swelling at site. Pressure dressing applied. 05:38 Provided Education on: medication administration . ha1 Administered Medications: 02:30 Drug: Famotidine IVP 20 mg IVP once; dilute with 10 mL 0.9% NaCl; give over 2 minutes ha1 Route: IVP; Site: right antecubital; 03:00 Follow up: Response: No adverse reaction; Marked relief of symptoms ha1 02:32 Drug: NS 0.9% IV 1000 ml IV at 1 bolus Per protocol; 1000 mL bolus Route: IV; Rate: 1 ha1 bolus; Site: right antecubital; 05:42 Follow up: Response: No adverse reaction; IV Status: Completed infusion; IV Intake: ha1 1000ml 02:35 Drug: metoCLOPramide IVP 10 mg IVP once; over 1 to 2 minutes Route: IVP; Site: right ha1 antecubital; 03:00 Follow up: Response: No adverse reaction; Marked relief of symptoms ha1 02:37 Drug: Ondansetron IVP 4 mg IVP once; over 2 minutes Route: IVP; Site: right antecubital;ha1 03:00 Follow up: Response: No adverse reaction; Marked relief of symptoms ha1 02:40 Drug: morphine IVP or IV 4 mg IVP once over 4 mins Route: IVP; Infused Over: 4 mins; ha1 Site: right antecubital; 03:00 Follow up: Response: No adverse reaction; Marked relief of symptoms; Pain is decreased; ha1 RASS: Alert and Calm (0) 02:40 Drug: Ketorolac IVP 30 mg IVP once Route: IVP; Site: right antecubital; ha1 03:00 Follow up: Response: No adverse reaction; Marked relief of symptoms ha1 Medication: 03:43 VIS not applicable for this client. ha1 Intake: 05:42 IV: 1000ml; Total: 1000ml. ha1 Outcome: 05:05 Discharge ordered by sp4 05:38 Discharged to home ambulatory, ha1 05:38 Condition: stable 05:38 Discharge instructions given to patient, Instructed on discharge instructions, follow up and referral plans. medication usage, Demonstrated understanding of instructions, follow-up care, medications, Prescriptions given X 3, 05:43 Patient left the ED. ha1 Signatures: Dispatcher [employer] EDMS Yin Burton, Azalia Rehman RN RN ha1 Potepalov, Benjamin, MD MD sp4
[2023-12-30 06:08] VITALS: BP 118/64; TEMP 97.9; O2SAT 100
--- NOTE | 2023-12-30 10:26 | RAD REPORT ---
EXAM DESCRIPTION: CT - Abdomen Pelvis W Contrast - 12/30/2023 6:25 am CLINICAL HISTORY: ABD PAIN COMPARISON: None. TECHNIQUE: CT ABDOMEN PELVIS WITH IV CONTRAST on 12/30/2023 2:04 AM CDT This exam was performed according to our departmental dose-optimization program, which includes autom ated exposure control, adjustment of the mA and/or kV according to patient size and/or use of iterati ve reconstruction technique. FINDINGS: Lower lungs are clear. Abdomen: Liver is mildly fatty in attenuation. There is no biliary dilatation. Gallbladder is normal in appearance. The pancreas and spleen are normal in appearance. The adrenal glands and kidneys are u nremarkable. Abdominal aorta is normal in course and caliber without aneurysm. There is no free air. There is no r etroperitoneal adenopathy. Pelvis: There is no bowel obstruction. Urinary bladder is unremarkable. There is no free fluid. Uteru s is absent. Appendix is normal. Skeleton: There are no acute osseous findings. No suspicious bony lesions. IMPRESSION: No acute process. Electronically signed by: Reinaldo Aden MD 12/30/2023 04:19 AM CDT Due to temporary technical issues with the PACS/Fluency reporting system, reports are being signed by the in house radiologists without review as a courtesy to insure prompt reporting. The interpreting radiologist is fully responsible for the content of the report.
--- NOTE | 2023-12-30 13:44 | RAD REPORT ---
EXAM DESCRIPTION: US - Abdomen Exam Limited - 12/30/2023 2:47 am CLINICAL HISTORY: ABD PAIN COMPARISON: None. TECHNIQUE: Real-time sonographic images of the gallbladder were obtained using a curved multihertz t ransducer. FINDINGS: Liver: The visualized liver has normal contour and increased echogenicity. Hepatopedal yael w in the portal vein. Findings confirmed with color and spectral Doppler imaging. The common bile d uct measures 0.3 cm. Gallbladder: Shadowing gallstones within the gallbladder lumen. Gallbladder wall thickness of 0.3 c m. Sonographic Antoine's sign is not provided. IMPRESSION: Cholelithiasis without other sonographic evidence of acute cholecystitis. Hepatic steatosis. Electronically signed by: Jasbir Ruiz DO 12/30/2023 03:24 AM CDT M Due to temporary technical issues with the PACS/Fluency reporting system, reports are being signed by the in house radiologists without review as a courtesy to insure prompt reporting. The interpreting radiologist is fully responsible for the content of the report.
== END ==
LOC: ER 01:43
DX: K80.80 Other cholelithiasis without obstruction (principal); K80.20 Calculus of gallbladder without cholecystitis without obstruction; Z88.5 Allergy status to narcotic agent
CPT/HCPCS: 96361; 85025; 81001; 36415; 81025; 83690; 80053; 74177; 76705; 96375; 96374; 99284; Q9967; J2765; J2405; J7030

== ENCOUNTER 2023-12-31 12:37 | Day surgery (SDC) | payer OTHER ==
[2023-12-31] MEDS ORDERED: LIDOCAINE 2% MPF 5 ML VIAL ONE (13:17)
[2023-12-31] MEDS ORDERED: ONDANSETRON 4 MG/2 ML VIAL ONE (13:17)
[2023-12-31] MEDS ORDERED: propofoL 200 MG/20 ML VIAL IV ONE (13:17)
[2023-12-31] MEDS ORDERED: FENTANYL CITR 100 MCG/2 ML ONE ×2 (13:18→14:41)
[2023-12-31] MEDS ORDERED: MIDAZOLAM HCL 2 MG/2 ML INJ ONE (13:18)
[2023-12-31] MEDS ORDERED: ROCURONIUM 50 MG/5 ML VIAL IV ONE (13:18)
[2023-12-31] MEDS ORDERED: SUCCINYLCHOLINE 20 MG/ML (10 ML) IV ONE (13:22)
--- NOTE | 2023-12-31 13:29 | RAD REPORT ---
EXAM DESCRIPTION: RAD - Chest Pa And Lat (2 Views) - 12/31/2023 1:22 pm CLINICAL HISTORY: Preop Chest pain. COMPARISON: Chest Pa And Lat (2 Views) dated 05/23/2021; Chest Pa And Lat (2 Views) dated 11/04/2020 FINDINGS: The lungs are clear. The heart is normal in size. No displaced fractures. IMPRESSION: No acute or concerning finding suspected.
[2023-12-31] MEDS: Ringers Lactate 1,000 ML IV ONE (13:30)
[2023-12-31] MEDS ORDERED: dexAMETHasone 10 MG/ML VIAL ONE (14:08)
[2023-12-31] MEDS: CEFOXITIN SODIUM 1 GM/VIAL ONE (14:10)
[2023-12-31] MEDS ORDERED: EPHEDRINE SULF 50 MG/ML VIAL ONE (14:32)
[2023-12-31] MEDS ORDERED: NEOSTIGMINE 1 MG/ML -10 ML VIAL ONE (15:07)
[2023-12-31] MEDS ORDERED: GLYCOPYRROLATE 0.2 MG/ML SYR ONE (15:08)
[2023-12-31] MEDS ORDERED: KETOROLAC 30 MG/ML INJ ONE (15:10)
--- NOTE | 2023-12-31 15:30 | P.BOP ---
Preoperative diagnosis: acute cholecystitis, symptomatic cholelithiasis Postoperative diagnosis: same Primary procedure: Laparoscopic cholecystectomy Estimated blood loss: <10cc Specimen: gb Findings: inflammed thick wall gallbladder Anesthesia: General Complications: None Transferred to: Recovery Room Condition: Good
[2023-12-31] MEDS: FENTANYL CITR 100 MCG/2 ML ONE (15:40)
[2023-12-31 16:34] VITALS: TEMP 97.6
[2023-12-31 17:34] VITALS: BP 117/55; O2SAT 98
--- NOTE | 2023-12-31 18:37 | OP ---
Date of Procedure: 12/31/2023 Surgeon: Dorian Brenner MD Preoperative Diagnoses: Acute cholecystitis, symptomatic cholelithiasis. Postoperative Diagnoses: Acute cholecystitis, symptomatic cholelithiasis. Procedure: Laparoscopic cholecystectomy. Estimated Blood Loss: Less than 10 cc. Specimen: Gallbladder. Finding: Inflamed thick gallbladder with distention. Anesthesia: General plus local. Indications For Procedure: This is a case of a female, who came to us with an acute cholecystitis, M urphy sign positive. She was seen yesterday in the ER, sent home. Patient came to my office in the afternoon, diagnosed with Antoine sign positive, peritonitis, acute cholecystitis. I advised the need for urgent laparoscopic, possible open cholecystectomy with benefits, alternatives, and risks includ ing, but not limited to, infection, bleeding, damage to adjacent structures, anesthesia complication, choledocholithiasis, bile leak, pancreatitis, MD, and even . She also understands this may not relieve any symptoms. She might need more than one surgical intervention. She understood, signed a consent. Description Of Procedure: Patient was brought to the operating room, placed on supine position. Ane sthesia was done without complication. Abdominal area was prepped and draped in the usual sterile fa shion. Marcaine 0.5% was injected for local anesthetic followed by sharp incision of the skin in the periumbilical region. Incision was carried down to fascia, which was opened under direct vision. P eritoneum was encountered, opened under direct vision. Vicryl #1 placed inside the fascia. Nuvia t rocar was carefully introduced. Pneumoperitoneum was obtained. I placed 3 more trocars, 5 mm each o ne of them, 1 in the epigastric area, 2 in the right upper quadrant using the same technique which co nsisted of local anesthetic, sharp incision of the skin, introduction of the trocars under direct vis ion. This allowed me to put a grasper in the fundus of the gallbladder, but they were so distended t hat we were going to have to deflate the gallbladder first. She also had adhesions of omentum to the gallbladder that is going to have to be addressed with the LigaSure. So, first we removed the adhes ions down with the help of LigaSure. No bleeding. There were multiple omental adhesions to the gall bladder that was taken off once again with the LigaSure. Then, after that, we proceeded to put an En do needle under direct visualization and deflated the gallbladder due to distention and thickening. Needle was removed under direct visualization. Graspers were placed in the fundus of the gallbladder , another grasper in the infundibulum, retracting the gallbladder in the inferolateral fashion exposi ng the triangle of Calot, and obtaining critical view. Cystic duct and cystic artery were clearly is olated, freed circumferentially and a connection between those and the gallbladder were clearly ident ified. I proceeded to ligate those by using at least 3 clips proximal, 1 clip distal, ligation in th e middle. The same was done with the cystic artery. No bile leak. No bleeding. The gallbladder wa s removed from the liver using Bovie cauterizer and removed from abdominal cavity using EndoCatch thr ough umbilical incision. Area was inspected once again. No bile leak. No bleeding. At that moment , I proceeded to remove the trocars under direct vision, not without first checking the area of the l ysis of adhesions with no bleeding. Removed the trocars under direct visualization. Deflated the pn eumoperitoneum. Closed the fascia with #1 Vicryl. Irrigated subcutaneous tissue, closed that with 3 -0 chromic and the skin with tia. Sponge counts and instrument counts were correct. Patient inder erated the procedure well. Patient sent to Recovery in stable condition. AHNNAH/FREDY Voice ID: [id number] Report ID: [id number]
--- NOTE | 2023-12-31 18:43 | DS ---
Date of Discharge: 12/31/2023 Diagnoses: Acute cholecystitis, acute abdominal pain, intractable right upper quadrant abdominal adolph n, symptomatic cholelithiasis. Procedure: Laparoscopic cholecystectomy. Condition: Stable. Disposition: Home. Activity: As tolerated. No heavy lifting. Plan: Follow up in my office in 1 week. Call for an appointment at [phone]. Keep area dry for 48 hours, then may shower. Keep Steri-Strip intact. HANNAH/FREDY Voice ID: [id number] Report ID: [id number]
--- NOTE | 2024-01-03 14:27 | EKG ---
Test Date: 2023-12-31 Test Time: 12:46:25 Housekeeping Associate: ADILSON MEASUREMENT RESULTS: Intervals: Rate: 68 WA: 182 QRSD: 92 QT: 408 QTc: 433 [place]: P: 46 WA: 182 QRS: -46 T: 28 INTERPRETIVE STATEMENTS: Normal sinus rhythm Left anterior fascicular block Abnormal ECG Compared to ECG 06/25/2022 15:13:20 Left anterior fascicular block now present Left-axis deviation no longer present Myocardial infarct finding no longer present Electronically Signed On 01-03-24 14:16:49 CDT by Prabhjot Aguilar
== END 2023-12-31 16:56 | disposition home or self-care (01) ==
LOC: OR 12:37
PROVIDERS: ATTEND Surgery
PROC: 0FT44ZZ Resection of Gallbladder, Percutaneous Endoscopic Approach (ICD-10-PCS; principal; 2023-12-31 14:15)
DX: K80.00 Calculus of gallbladder with acute cholecystitis without obstruction (principal)
CPT/HCPCS: 47562; 93005; 88304; 71046; J2704; J2710; J2001; J2250; J3010 ×3; J1100; J0694; J2405; J7120